=== PATIENT | female | born 1990 | race Caucasian/White ===

== ENCOUNTER 2021-08-23 05:50 | Day surgery (SDC) | payer OTHER ==
[~2021-08-23] VITALS: Ht 157.5 cm; Wt 75.0 kg
--- NOTE | ~2021-08-23 | OR ---
[facility] [address], [place] [address] Draft DATE OF OPERATION: 08/23/2021 SURGEON: Kenneth Felton MD PREOPERATIVE DIAGNOSES: 1. Chronic frontal sinusitis. 2. Chronic ethmoiditis. 3. Chronic sphenoiditis. 4. Chronic maxillary sinusitis. 5. Deviated nasal septum. 6. Recurring acute sinusitis. POSTOPERATIVE DIAGNOSES: 1. Chronic frontal sinusitis. 2. Chronic ethmoiditis. 3. Chronic sphenoiditis. 4. Chronic maxillary sinusitis. 5. Deviated nasal septum. 6. Recurring acute sinusitis. PROCEDURES: 1. Bilateral endoscopic frontal ethmoidectomy 15301-12. 2. Nasal septoplasty, 31948. 3. Bilateral endoscopic sphenoidotomies, 59503-25. 4. Bilateral endoscopic maxillary antrostomies 39545-20. INDICATIONS: This 31-year-old female has had a decade or more of chronic sinus disease and even longer than that of chronic sinus headaches. These headaches are referable to all the usual pain patterns for sinuses, i.e. the religious, forehead around the eyes, maxillary region, teeth, and the occipital region. CT scan is showing gross disease mostly on the right side, lots of inflammation in the right maxillary sinus, also in the frontal sinus on the right side and the ethmoid just inferior to that with a narrow labyrinth generally at a large spur almost stabbing into the inferior turbinate on the right side. Because of medical failure to improve her symptoms, i.e. multiple antibiotic administrations and nasal steroids, decongestants even sinus rinses, the surgical alternative was the only thing that would improve her baseline, which was unacceptable. PROCEDURE: The patient was placed in the supine position, had an orotracheal intubation placed PATIENT NAME: PETERSON CORBIN OPERATIVE REPORT DATE OF : 86 REPORT #: [id number] PHYSICIAN: KENNETH FELTON MD PCP: NO PRIMARY CARE PHYSICIAN REPORT IS CONFIDENTIAL AND NOT TO BE RELEASED WITHOUT AUTHORIZATION [facility] [address], [place] [address] Draft under general anesthesia. Photographs were taken preop, intraop and postoperatively. On the right side of the middle turbinate, uncinate process, and the nasal septal spur were injected with about 3.5 mL of 1% lidocaine 1:200,000 epinephrine. To begin with, the septal spur was dealt with and incision was made just anterior to that. Then, the caudal dissection tool was used to elevate the mucoperiosteum and in some cases mucoperichondrium as the spur had a complex composition both cartilage and bone. Then, the osteotome was used to cut this at the base of the spur and elevation of the mucoperiosteum was further done with the Flathead dissection tool and then the spur taken out which was both cartilage and bone under the mucosa taking some of the mucosa with it. This created a better airway also more functional room for the procedure. The anterior-inferior portion of the middle turbinate was trimmed away with microdebrider and the Thru-Cut ethmoid punch and Kerrison forceps. The microdebrider also shaved the polypoid mucosa from the middle turbinates. The uncinate process was removed with backbiting forceps, opening up the maxillary ostium and tearing within. There was a serous cyst as well as what could have been inflammatory reaction to a tooth root. This will be followed up by an roaster supervisor. Then, the diseased mucosa was removed from the posterior aspect of the ostium removing more that bone, so could be irrigated well. The ethmoid labyrinth was entered, grossly diseased mucosa was apparent throughout both anterior and posterior ethmoids. A transethmoid sphenoidotomy was performed taking down all of that bone with the Kerrison forceps, staying low enough until the ceiling of the sphenoid sinus could be visualized. Switching to a 70 degree scope, the dissection proceeded anteriorly up to the frontal recess. The frontal sinus had a lateral opening and was totally closed off with disease. This was removed with the frontal sinus instruments and the frontal sinus opened as widely as possible. No mucosa was stripped from that critical region. Nasopore with some mupirocin ointment was placed into the dissected sinus labyrinth and then the same dissection done on the left side. There was left inflammatory tissue, although still present throughout the ethmoid labyrinth. The maxillary ostium was opened after removing the uncinate process. The ethmoid labyrinth was completely dissected out sparing mucosa using the Thru-Cut ethmoid punch, the microdebrider and the Kerrison forceps. Again, a transethmoid sphenoidotomy was performed and opened up widely, then the base of skull dissected out with a 70 degree scope and the frontal sinus widely opened using the frontal sinus Kerrison punch. Estimated blood loss was less than 100. Packing was not required, just the NasoPore to help prevent lateralization of the remnant at the middle turbinate. The patient went to recovery room in good condition. There were no complications. Kenneth Felton MD PATIENT NAME: PETERSON CORBIN OPERATIVE REPORT DATE OF : 86 REPORT #: [id number] PHYSICIAN: KENNETH FELTON MD PCP: NO PRIMARY CARE PHYSICIAN REPORT IS CONFIDENTIAL AND NOT TO BE RELEASED WITHOUT AUTHORIZATION [address] [place] [address] Draft [facility] /[id number] Copies: ~ PATIENT NAME: PETERSON CORBIN OPERATIVE REPORT DATE OF : 86 REPORT #: [id number] PHYSICIAN: KENNETH FELTON MD PCP: NO PRIMARY CARE PHYSICIAN REPORT IS CONFIDENTIAL AND NOT TO BE RELEASED WITHOUT AUTHORIZATION
--- NOTE | 2021-08-23 09:31 | NUR ---
08/23/21 0931 Judit Vicente 0997 PATIENT ARRIVES TO PACU UNRESPONSIVE TO PAIN. ORAL AIRWAY IN PLACE. OCCASIONAL NEED FOR CHIN LIFT. RESP EVEN AND UNLABORED, MASK AT 6 LITERS.
--- NOTE | 2021-08-23 10:17 | NUR ---
1000 PT BACK TO ROOM AWAKE AND ALERT, REPORTS HAVING A SORE THROAT, DENIES PAIN TO HEAD OR SINUSES, SHE REPORTS NEEDING TO VOID, HELPED PT ONTO COMMOD, SHE WAS ABLE TO VOID 600ML OF CLEAR YELLOW URINE, PT HELPED BACK INTO BED, RAFAEL HUGGER PLACE BETWEEN BLANKETS, SIDE RAILS UP, CALL LIGHT WITHIN REACH, PT TAKING SIPS OF WATER TOLERATES WELL.
--- NOTE | 2021-08-23 10:29 | NUR ---
PT ASKING FOR ICE CHIPS, GIVEN A CUP WITH SPOON SHE TOLERATES WELL.
--- NOTE | 2021-08-23 11:17 | NUR ---
1100 PT REPORTS NEEDING TO VOID SHE WALKED TO BATHROOM WITH MINIMAL ASSIST. SHE WAS ABLE TO VOID A GOOD AMOUNT OF CLEAR YELLOW URINE. SHE WAS HELPED BACK INTO BED, GIVEN JELLO AND ICE CHIPS, CONTINUES TO COMPLAIN OF SORE THROAT, SHE IS ALSO COMPLAINING OF NECK PAIN AND STIFFNESS. ADVISED HER TO USE WARM PACK ON NECK. DISCHARGE INSTRUCTIONS GIVEN TO PT AND BOTH VOICED UNDERSTANDING.
--- NOTE | 2021-08-23 12:48 | NUR ---
1200 PT NEEDS TO USE BATHROOM AGAIN, SHE WAS ABLE TO VOID A GOOD AMOUT OF CLEAR YELLOW URINE, SHE REPORTS SHE IS READY TO GO HOME, IV DC'D TIP IN TACT,HER HELPED HER GET DRESSED. CHANGED DRESSING UNDER NOSE BEFORE SHE WENT HOME
== END 2021-08-23 12:20 | disposition home or self-care (01) ==
LOC: DS 05:50 → OPS 05:50 → DS 07:30 → OPS 12:20
PROVIDERS: ATTEND Otolaryngology
PROC: 09TU4ZZ Resection of Right Ethmoid Sinus, Percutaneous Endoscopic Approach (ICD-10-PCS; 2021-08-23)
PROC: 09BM4ZZ Excision of Nasal Septum, Percutaneous Endoscopic Approach (ICD-10-PCS; 2021-08-23)
PROC: 09TV4ZZ Resection of Left Ethmoid Sinus, Percutaneous Endoscopic Approach (ICD-10-PCS; principal; 2021-08-23 07:30)
DX: J32.1 Chronic frontal sinusitis (principal); J32.2 Chronic ethmoidal sinusitis; J32.3 Chronic sphenoidal sinusitis; J32.0 Chronic maxillary sinusitis; J34.2 Deviated nasal septum; J01.91 Acute recurrent sinusitis, unspecified; Z88.0 Allergy status to penicillin
CPT/HCPCS: 84703; J0131; J0330; J1100; J1885; J2250; J2405; J2704; J2765; J3010; J7121